=== PATIENT | male | born 1975 | race Caucasian/White ===

== ENCOUNTER 2018-04-25 08:50 | Emergency (ER) | payer MEDICAID, OTHER ==
[~2018-04-25] VITALS: Ht 160 cm; Wt 124.0 kg
[2018-04-25 09:05] VITALS: Ht 160 cm; Wt 124.0 kg
[2018-04-25] MEDS ORDERED: MTF1000T PO (09:32)
[2018-04-25] MEDS ORDERED: IBUP-1542 PO (11:24)
--- NOTE | 2018-04-25 11:26 | ERD ---
ER Documentation Chief Complaint Chief Complaint chest pain and dizziness x 1 hour denies SOB HPI Patient is a 42-year-old male with hypertension and diabetes who presents with dizziness. He was brought in by ambulance. He said that he was going to work and felt dizzy like the room was spinning. He had 2 out of 10 chest pain. He was given aspirin and nitroglycerin by paramedics. His blood pressure was elevated as well. He said the symptoms were coming and going and started 1 hour ago. He says that now he feels normal other than feeling cold. ROS All systems reviewed and are negative except as per history of present illness. Medications Home Meds Active Scripts Ibuprofen* (Motrin*) 600 Mg Tab, 600 MG PO Q6H PRN for PAIN AND OR ELEVATED TEMP, #30 TAB Prov:GARO SEXTON MD 04/25/18 Reported Medications Metformin* (Glucophage*) 1,000 Mg Tablet, 1000 MG PO BID, #60 TAB 04/25/18 Allergies Allergies: Coded Allergies: No Known Allergy (Unverified , 04/25/18) PMhx/Soc Positive for diabetes and hypertension Hx Alcohol Use: No Hx Substance Use: No Hx Tobacco Use: No Smoking Status: Unknown if ever smoked FmHx Family History: coronary disease Physical Exam Vitals Vital Signs Date Temp Pulse Resp B/P (MAP) Pulse Ox O2 O2 Flow FiO2 Time Delivery Rate 04/25/18 98.1 86 18 177/94 99 09:05 (121) Physical Exam Const: No acute distress Head: Atraumatic Eyes: Normal Conjunctiva ENT: Normal External Ears, Nose and Mouth. Neck: Full range of motion. No meningismus. Resp: Clear to auscultation bilaterally Cardio: Regular rate and rhythm, no murmurs Abd: Soft, non tender, non distended. Normal bowel sounds Skin: No petechiae or rashes Back: No midline or flank tenderness Ext: No cyanosis, or edema Neur: Awake and alert, cranial nerves II through XII are intact, strength is 5 out of 5 in all 4 extremities, no slurred speech Psych: Normal Mood and Affect Result Diagram: 04/25/18 0941 04/25/1841 Results 24 hrs Laboratory Tests Test 04/25/18 09:41 White Blood Count 11.5 10^3/ul Red Blood Count 4.95 10^6/ul Hemoglobin 15.1 g/dl Hematocrit 44.6 % Mean Corpuscular Volume 90.1 fl Mean Corpuscular Hemoglobin 30.5 pg Mean Corpuscular Hemoglobin Concent 33.9 g/dl Red Cell Distribution Width 12.7 % Platelet Count 223 10^3/UL Mean Platelet Volume 10.5 fl Immature Granulocytes % 0.400 % Neutrophils % 77.8 % Lymphocytes % 14.3 % Monocytes % 6.3 % Eosinophils % 0.9 % Basophils % 0.3 % Nucleated Red Blood Cells % 0.0 /100WBC Immature Granulocytes # 0.050 10^3/ul Neutrophils # 9.0 10^3/ul Lymphocytes # 1.7 10^3/ul Monocytes # 0.7 10^3/ul Eosinophils # 0.1 10^3/ul Basophils # 0.0 10^3/ul Nucleated Red Blood Cells # 0.0 10^3/ul Sodium Level 136 mmol/L Potassium Level 4.0 mmol/L Chloride Level 100 mmol/L Carbon Dioxide Level 24 mmol/L Anion Gap 12 Blood Urea Nitrogen 16 mg/dl Creatinine 0.53 mg/dl Est Glomerular Filtrat Rate mL/min > 60 mL/min Glucose Level 125 mg/dl Calcium Level 9.6 mg/dl Troponin I < 0.012 ng/ml Current Medications Medications Dose Sig/Leah Start Time Status Last (Trade) Ordered Route PRN Stop Time Admin Dose Reason Admin Meclizine 25 mg ONCE ONCE 04/25/18 04/25/18 HCl PO 12:00 04/25/18 11:38 (Antivert) 12:01 Procedures/MDM EKG 1 read by me: Rate/Rhythm: Regular rate and rhythm at a rate of 72 Intervals: Normal Impression: No evidence of ischemia or arrhythmia EKG 2 read by me: Rate/Rhythm: Regular rate and rhythm at a rate of 66 Intervals: Normal Impression: No evidence of ischemia or arrhythmia Chest x-ray read by radiology. Smoking Cessation Therapy: Pt. was lectured for greater than 3 minutes on the health risks of continued smoking and the benefits of cessation. Patient is a 42-year-old male who presents with dizziness and mild chest pain. Laboratory studies were negative. 2 EKGs did not show any sign of ischemia. Chest x-ray is negative for pneumonia or pneumothorax. At this point I doubt acute coronary syndrome, pneumonia, pneumothorax, pulmonary embolism, or aortic dissection. I did offer the patient admission for further workup and evaluation with the patient will prefer to go home at this time. He can return for any worsening symptoms. He should follow-up with his primary doctor within 24 hours for reevaluation. Departure Diagnosis: Primary Impression: Chest pain Chest pain type: unspecified Qualified Codes: R07.9 - Chest pain, unspecified Condition: Fair Patient Instructions: Chest Pain, Uncertain Cause Referrals: Your doctor Additional Instructions: Llame al doctor MAANA y lauren hiren KYLAH PARA DENTRO DE 1-2 SAINZ.Dgale a la secretaria que nosotros le instruimos hacer esta kylah.Avise o llame si [place] condicin se empeora antes de la kylah. Regresa aqui si peor o no mejor. GARO SEXTON MD Apr 25, 2018 11:26
[2018-04-25] MEDS ORDERED: MECLIZINE 12.5 MG TAB PO ONE (12:00)
[2018-04-25 12:40] VITALS: BP 152/82; PULSE 80; RESP 18
[2018-04-25] MEDS ORDERED: MECL12.574 PO (12:43)
== END 2018-04-25 12:48 | disposition home or self-care (01) ==
LOC: E/R 08:50
DX: R07.9 Chest pain, unspecified (principal); R40.2142 Coma scale, eyes open, spontaneous, at arrival to emergency department; R40.2362 Coma scale, best motor response, obeys commands, at arrival to emergency department; I10 Essential (primary) hypertension; Z79.84 Long term (current) use of oral hypoglycemic drugs
CPT/HCPCS: 36415; 71045; 80048; 84484; 85025; 93005; Z7502; Z7610